=== PATIENT | female | born 1985 | race Caucasian/White ===

== ENCOUNTER 2016-12-12 18:08 | Emergency (ER) | payer BC, MEDICAID ==
[2016-12-12] MEDS ORDERED: ONDANSETRON HCL/PF 2 MG/ML VIAL IV ONE ×2 (18:52→20:48)
[2016-12-12] MEDS ORDERED: FAMOTIDINE 10 MG/ML VIAL IV ONE ×2 (18:53→19:06)
[2016-12-12] MEDS ORDERED: HYDROmorphone HCL 1 MG/ML DISP.SYRIN IV ONE (18:53)
[2016-12-12] MEDS ORDERED: NORMAL SALINE 2,000 ML IV ONE (18:53)
--- NOTE | 2016-12-12 19:00 | ERNOTE ---
<RavindraBob - Last Filed: 12/12/16 20:13> Abdominal HPI - Narrative Date of Service: 12/12/16 - General Chief Complaint: Abdominal Pain Time Seen by Provider: 12/12/16 18:50 Source: patient Exam Limitations: no limitations - Immun/Allergies/Home Medications Immunizatons: IMMUNIZATION HX Immunizations Up to Date Yes History of Influenza Vaccine Yes Hx Pneumococcal Vaccination No Allergies/Adverse Reactions: Allergies Sulfa (Sulfonamide Antibiotics) [Sulfa(Sulfonamide Antibiotics)] Allergy ( Verified 07/25/16 19:48) Hives hives Home Medications: HOME MEDICATIONS Albuterol Sulfate [Ventolin Hfa] 2 puff IH Q4H PRN 03/26/16 [Last Taken Unknown] ALPRAZolam [Xanax] 0.25 mg PO DAILY PRN #10 tab 07/25/16 [Last Taken Unknown] Dicyclomine HCl [Bentyl] 10 - 20 mg PO TID #20 tab 12/12/16 [Last Taken Unknown] - History of Present Illness Narrative: Patient comes due to upper abdominal pain. Timing: constant Quality: severe, sharpness Activities at Onset: none Modifying Factors - (Improves): Present: other - nothing Modifying Factors - (Worsens): Present: breathing, movement Associated Symptoms: Absent: headache, back pain, chest pain, neck pain, diaphoresis, diarrhea-gross blood, diarrhea-mucous, fatigue, heartburn, nausea, vomiting, loss of appetite, shortness of breath, swelling/mass in abdomen, syncope, weakness Prior Abdominal Problems: Present: none Prior Treatment: Present: recently seen Comment: Patient has Hx of Bowel Resection Review of Systems - Review of Systems Constitutional: Present: chills, malaise. Absent: fever EYE: Present: no symptoms reported ENT: Present: no symptoms reported Respiratory: Absent: shortness of breath, cough, orthopnea, wheezing Cardiology: Absent: chest pain, palpitations, syncope, edema Gastrointestinal/Abdominal: Present: nausea, abdominal pain. Absent: vomiting, diarrhea, constipation Genitourinary: Absent: frequency, pain, dysuria, hematuria Musculoskeletal: Present: no symptoms reported Skin: Present: no symptoms reported Neurological: Present: no symptoms reported Endocrine: Present: no symptoms reported Hematologic/Lymphatic: Present: no symptoms reported Psych: Present: no symptoms reported - Patient's Past Medical History Patient History - Medical: Anemia, ADHD, Anxiety, Migraines, Obesity Patient History - Cardiac/Respiratory: Asthma Patient History - Cancer: No Hx of Cancer Patient History - Surgical Procedures: Cholecystectomy, , Ear Tubes, Tubal Ligation, Other - Family History Mother Family History - Medical: , Rheumatoid Arthritis Family History - Cardiac/Respiratory: Hypertension Father Family History - Medical: Rheumatoid Arthritis Family History - Cardiac/Respiratory: Hypertension - Social History Living Situations: spouse Does anyone smoke in the home?: Yes Smoking Status: Current every day smoker Patient requests Smoking Cessation Consult: No Initiate information on Smoking Cessation: No Alcohol Use: occasionally Drug Use: none Physical Exam - Physical Exam General Appearance: Present: wd/wn, alert, no apparent distress Eye Exam: Normal inspection: bilateral, PERRL: bilateral, EOMI: bilateral Ears, Nose, Throat: Present: normal ENT inspection, hearing grossly normal, normal pharynx, dry mucous membranes Neck: Present: normal inspection, nontender. Absent: carotid bruit Respiratory: Present: no respiratory distress, normal breath sounds, no accessory muscle use, chest nontender, lungs clear Cardiovascular/Chest: Present: regular rate, rhythm, no murmur, normal peripheral pulses. Absent: JVD Gastrointestinal/Abdominal: Present: soft, tenderness - Upper Abdominal Area. Absent: distended, guarding, rebound, mass Back Exam: Present: normal inspection, normal range of motion, no CVA tenderness , no vertebral tenderness Extremity Exam: Present: normal inspection, non-tender, no edema, normal range of motion Neurological Exam: Present: alert, oriented, normal mood/affect, no motor/ sensory deficits Skin Exam: Present: normal color, warm/dry Lymphatic Exam: Present: no adenopathy ED Progress - Vital Signs Vital Signs: Vital Signs 12/12/16 18:26 Temperature 37.4 C Pulse Rate 98 Respiratory 18 Rate Blood Pressure 154/96 O2 Sat by Pulse 98 Oximetry - Progress/Reassessment Chief Complaint: Abdominal Pain - Transfer of Care Physician Sign Out: Bob Waite - Pending CT and Disposition Brief History: Patient with upper abdominal pain. Hx of resection who is pending CT result. Receiving Physician: Regis Roldan Departure - Departure Clinical Impression: Abdominal pain Qualifiers: Abdominal location: upper abdomen, unspecified Qualified Code(s): R10.10 - Upper abdominal pain, unspecified Disposition: Home Follow Up Needed Condition: Fair Instructions: Abdominal Pain, Adult, [id number] Additional Instructions: See your regular doctor for further evaluation of the lung and bladder findings on the CT. Gas-x may help with the pains. Prescriptions: Dicyclomine HCl [Bentyl] 10 - 20 mg PO TID #20 tab <Regis Roldan - Last Filed: 12/12/16 21:57> Abdominal HPI - Immun/Allergies/Home Medications Immunizatons: IMMUNIZATION HX Immunizations Up to Date Yes History of Influenza Vaccine Yes Hx Pneumococcal Vaccination No ED Progress - Results and Orders Patient's Lab Results:: I have reviewed the patient's lab results. Results and Orders: Laboratory Tests 12/12/16 12/12/16 12/12/16 19:10 19:10 19:50 WBC 6.8 Hgb 12.7 Hct 36.5 L Plt Count 306 Sodium 136 Potassium 4.4 Chloride 103 Carbon Dioxide 23.6 L BUN 9 Creatinine 0.63 Random Glucose 98 Calcium 8.9 Total Bilirubin 0.4 AST 31 ALT 67 Alkaline Phosphatase 96 Total Protein 8.0 Albumin 3.9 Amylase 58 Urine Color Yellow Urine Appearance Slightly cloudy Urine pH 6.0 Ur Specific [place] 1.015 Urine Protein Negative Urine Glucose (UA) Negative Urine Ketones Negative Urine Blood 250 H Urine Nitrate Negative Urine Bilirubin Negative Urine Urobilinogen Normal Ur Leukocyte Esterase Negative Urine RBC 0-5 Urine WBC 0-5 Ur Epithelial Cells 5-10 H Urine Bacteria Trace Urine Culture Comments No culture indicated - Vital Signs Patient's Vital Signs:: I have reviewed the patient's vital signs. Vital Signs: Vital Signs 12/12/16 12/12/16 18:26 19:27 Temperature 37.4 C Pulse Rate 98 94 Respiratory 18 18 Rate Blood Pressure 154/96 145/87 O2 Sat by Pulse 98 96 Oximetry - CT/Ultrasound CT/Ultrasound Narrative: Abd/ pelvis with contrast: irregular appearing densities within the left lung base. Wall thickening of the sigmoid colon wall thickening of the bladder - Progress/Reassessment Progress:: Improved Progress Note-Subjective: 12/12/16 20:49 initial pain medication did help pain but increased nausea. Pt having more pain again. orders written 12/12/16 21:[address] results and need to follow up with her PCP about bladder and lung findings. PO bentyl given for abd. cramping
[2016-12-12] MEDS ORDERED: ONDANSETRON HCL/PF 2 MG/ML VIAL ONE ×2 (19:06→20:47)
[2016-12-12] MEDS ORDERED: HYDROmorphone HCL 1 MG/ML DISP.SYRIN ONE (19:06)
[2016-12-12 19:17] LABS: Hematocrit 36.5 % (37.0-47.0); Hemoglobin 12.7 gm/dL (12.5-16.0); Mean Cell Volume 90.3 fl (78-100); Mean Corpuscular Hemoglobin 31.4 pg (27-31); Mean Corpuscular Hgb Conc 34.8 g/dl (32-36); Mean Platelet Volume 8.7 fl (6.0-9.5); Neutrophil # 4.7 K/mm3 (1.3-6.0); Neutrophil % 69.5 % (42-75.0); Platelet Count 306 K/mm3 (150-450); Red Blood Count 4.04 M/mm3 (4.2-5.4); Red Cell Distribution Width 11.8 % (11.5-14.0); White Blood Count 6.8 K/mm3 (4.0-10.5)
[2016-12-12 19:27] VITALS: BP 145/87
[2016-12-12 19:39] LABS: Albumin * 3.9 gm/dl (3.4-5.0); Anion Gap 13.8 mmol/L (6.8-13.8); BUN/Creatinine Ratio 14.3 (9.0-21.6); Bilirubin, Total 0.4 mg/dL (0.0-1.1); Ca. Corrected For Albumin 8.7 mg/dL (8.4-10.2); Calcium * 8.9 mg/dL (7.9-10.9); Carbon Dioxide 23.6 mmol/L (24-32.6); Potassium 4.4 mmol/L (3.4-4.6)
[2016-12-12 20:22] LABS: Urine Bilirubin Negative (NEGATIVE); Urine Blood 250 /ul (NEGATIVE); Urine Ketone Negative (NEGATIVE); Urine Nitrite Negative (NEGATIVE); Urine Protein Negative (NEGATIVE); Urine Specific Gravity 1.015 SP.GR. (1.005-1.010); Urine Urobilinogen Normal (NORMAL)
[2016-12-12 20:46] LABS: Urine Appearance Slightly Cloudy; Urine Bacteria TRACE; Urine Color Yellow; Urine RBC 0-5 /hpf (0-5); Urine WBC 0-5 /hpf (0-5)
[2016-12-12] MEDS ORDERED: MORPHINE SULFATE 2 MG/ML DISP.SYRIN ONE (20:47)
[2016-12-12] MEDS ORDERED: MORPHINE SULFATE 2 MG/ML DISP.SYRIN IV ONE (20:48)
[2016-12-12] MEDS ORDERED: MAG HYDROX/ALUMINUM HYD/SIMETH 30 ML UDC PO ONE (21:01)
[2016-12-12] MEDS ORDERED: LIDOCAINE HCL 20 ML UDC PO ONE (21:01)
[2016-12-12] MEDS ORDERED: SUCRALFATE 1 G/10 ML UDC PO ONE (21:01)
[2016-12-12] MEDS ORDERED: DICYCLOMINE HCL 20 MG TABLET PO ONE (21:50)
[2016-12-12] MEDS ORDERED: DICYCLOMINE HCL 20 MG TABLET ONE (21:56)
== END 2016-12-12 22:00 | disposition home or self-care (01) ==
LOC: ER 18:08
DX: R10.10 Upper abdominal pain, unspecified (principal); F17.200 Nicotine dependence, unspecified, uncomplicated; Z90.49 Acquired absence of other specified parts of digestive tract; Z96.29 Presence of other otological and audiological implants; Z87.898 Personal history of other specified conditions

== ENCOUNTER 2016-12-17 14:42 | Emergency (ER) | payer BC, MEDICAID ==
[2016-12-17 15:58] VITALS: BP 150/74
[2016-12-17] MEDS ORDERED: KETOROLAC TROMETHAMINE 30 MG/ML VIAL IM ONE (16:23)
--- NOTE | 2016-12-17 16:23 | ERNOTE ---
Medical Problem HPI - Narrative Date of Service: 12/17/16 - General Chief Complaint: General Assessment Time Seen by Provider: 12/17/16 16:09 Source: patient Exam Limitations: no limitations - Immun/Allergies/Home Medications Immunizations: IMMUNIZATION HX Immunizations Up to Date Yes History of Influenza Vaccine Yes Hx Pneumococcal Vaccination No Allergies/Adverse Reactions: Allergies Sulfa (Sulfonamide Antibiotics) [Sulfa(Sulfonamide Antibiotics)] Allergy ( Verified 12/17/16 15:57) Hives hives Home Medications: HOME MEDICATIONS Albuterol Sulfate [Ventolin Hfa] 2 puff IH Q4H PRN 03/26/16 [Last Taken Unknown] ALPRAZolam [Xanax] 0.25 mg PO DAILY PRN #10 tab 07/25/16 [Last Taken Unknown] Dicyclomine HCl [Bentyl] 10 - 20 mg PO TID #20 tab 12/12/16 [Last Taken Unknown] Azithromycin [Zithromax] 500 mg PO NOW #6 tab 12/17/16 [Last Taken Unknown] - History of Present History Narrative: Patient presents with one week of bilateral ear pain right >left, sore throat. Other sick contacts with the same. No fever. mile [place] around ears. No trouble breathing or swallowing. Has not seen anyone else for this. Nothign seems to make it better or worse. She is requesting an antibiotic. Occasional cough. Denies SOB. Timing: constant Severity: moderate Modifying Factors - (Improves): Present: other - none Modifying Factors - (Worsens): Present: other - none Review of Systems - Review of Systems Constitutional: Absent: fever EYE: Present: no symptoms reported ENT: Present: ear pain, nose congestion, sore throat. Absent: ear discharge Respiratory: Present: cough. Absent: shortness of breath Cardiology: Present: no symptoms reported Gastrointestinal/Abdominal: Absent: abdominal pain Genitourinary: Absent: dysuria Skin: Absent: rash Neurological: Absent: weakness - Patient's Past Medical History Patient History - Medical: Anemia, ADHD, Anxiety, Migraines, Obesity Patient History - Cardiac/Respiratory: Asthma Patient History - Cancer: No Hx of Cancer Patient History - Surgical Procedures: Cholecystectomy, , Ear Tubes, Tubal Ligation, Other - Family History Mother Family History - Medical: , Rheumatoid Arthritis Family History - Cardiac/Respiratory: Hypertension Father Family History - Medical: Rheumatoid Arthritis Family History - Cardiac/Respiratory: Hypertension - Social History Living Situations: spouse Does anyone smoke in the home?: Yes Smoking Status: Current every day smoker Have you smoked in the past 12 months: Yes Do you dip or chew tobacco: No Alcohol Use: occasionally Drug Use: none Physical Exam - Physical Exam General Appearance: Present: alert, no apparent distress. Absent: lethargic, irritable, crying Eye Exam: Normal inspection: bilateral, PERRL: bilateral Ears, Nose, Throat: Present: abnormal TM (R), abnormal TM (L), nasal congestion , other - Mild posterior oropharyngeal erythema. No abscess, no PRA, RPA or epiglottitis.. Absent: pharyngeal swelling, tonsillar exudate, tonsillar swelling, dry mucous membranes Neck: Present: other - Tender bilateral cervial lymphadenopathy. Respiratory: Present: no respiratory distress, normal breath sounds, no accessory muscle use, lungs clear Cardiovascular/Chest: Present: regular rate, rhythm Gastrointestinal/Abdominal: Present: normal bowel sounds, nontender, soft, no organomegaly Extremity Exam: Present: normal inspection Neurological Exam: Present: alert, normal mood/affect, licensed direct entry midwife II-XII nml as tested Skin Exam: Absent: skin rash ED Progress - Vital Signs Patient's Vital Signs:: I have reviewed the patient's vital signs. Vital Signs: Vital Signs 12/17/16 12/17/16 14:48 15:58 Temperature 36.2 C L Pulse Rate 115 H 76 Respiratory 14 12 Rate Blood Pressure 151/97 150/74 O2 Sat by Pulse 97 98 Oximetry - Progress/Reassessment Chief Complaint: General Assessment Progress Note-Subjective: 12/17/16 16:19 I offered the patient labs but she declines this. Understands risks and benefits. Clinically does have OM. She request ABx which I will give her. She is stable, non-toxic, no distress, nothing to suggest meningitis, abscess or other acute life threat. I discussed warning signs and reasons to return as well as the need for close f/u. Departure - Departure Clinical Impression: Otitis media Disposition: Home self-care Condition: Stable Instructions: Otitis Media, Adult, [id number] Additional Instructions: Rest. Fluids. Ibuprofen. Antibiotic as directed. Return if you change your mind about testing, develop trouble breathing or swallowing or if your condition worsens or changes in any way. Prescriptions: Azithromycin [Zithromax] 500 mg PO NOW #6 tab
[2016-12-17] MEDS ORDERED: KETOROLAC TROMETHAMINE 30 MG/ML VIAL ONE (16:28)
== END 2016-12-17 16:35 | disposition home or self-care (01) ==
LOC: ER 14:42
DX: H66.93 Otitis media, unspecified, bilateral (principal); F17.210 Nicotine dependence, cigarettes, uncomplicated; J45.909 Unspecified asthma, uncomplicated; F41.9 Anxiety disorder, unspecified

== ENCOUNTER 2017-02-10 14:39 | Emergency (ER) | payer BC, MEDICAID ==
[2017-02-10 15:04] VITALS: BP 133/92
--- NOTE | 2017-02-10 16:43 | ERNOTE ---
Abdominal HPI - Narrative Date of Service: 02/10/17 - General Chief Complaint: Abdominal Pain Time Seen by Provider: 02/10/17 16:40 Source: patient, RN notes reviewed Exam Limitations: no limitations - Immun/Allergies/Home Medications Immunizatons: IMMUNIZATION HX Immunizations Up to Date Yes History of Influenza Vaccine Yes Hx Pneumococcal Vaccination No Allergies/Adverse Reactions: Allergies Sulfa (Sulfonamide Antibiotics) [Sulfa(Sulfonamide Antibiotics)] Allergy ( Verified 12/17/16 15:57) Hives hives Home Medications: HOME MEDICATIONS Albuterol Sulfate [Ventolin Hfa] 2 puff IH Q4H PRN 03/26/16 [Last Taken Unknown] - History of Present Illness Narrative: 31 y/o female ambulatory to the ED for abdominal cramping that began yesterday. She has chronic diarrhea after a bowel resection in March of last year. She reports that this causes her to become dehydrated and having cramping. She states she has had about 10 stools today and that this is normal for her. She is also out of the pain medication she normally takes for this - [place]. Date (Duration): 02/09/17 Timing: getting worse Quality: cramping Activities at Onset: none Associated Symptoms: Present: denies symptoms Prior Abdominal Problems: Present: similar symptoms Prior Treatment: Present: recently seen Review of Systems - Review of Systems Constitutional: Absent: recent illness, fever, chills EYE: Present: no symptoms reported ENT: Present: no symptoms reported Respiratory: Absent: shortness of breath, cough Cardiology: Absent: chest pain, syncope Gastrointestinal/Abdominal: Present: diarrhea, abdominal pain. Absent: nausea, vomiting, eating less, drinking less Genitourinary: Absent: frequency, dysuria, hematuria Musculoskeletal: Present: no symptoms reported Skin: Absent: rash, lesions Neurological: Absent: headache, dizziness/light-headedness, weakness Endocrine: Present: no symptoms reported Hematologic/Lymphatic: Present: no symptoms reported Psych: Present: no symptoms reported - Patient's Past Medical History Patient History - Medical: Anemia, ADHD, Anxiety, Depression, Migraines, Obesity Patient History - Cardiac/Respiratory: Asthma Patient History - Cancer: No Hx of Cancer Patient History - Surgical Procedures: Cholecystectomy, Colon Resection, C- Section, Ear Tubes, Tubal Ligation, Other Patient History - Other: None LMP (females 10-50): 3 weeks - Family History Mother Family History - Medical: , Rheumatoid Arthritis Family History - Cardiac/Respiratory: Hypertension Father Family History - Medical: Rheumatoid Arthritis Family History - Cardiac/Respiratory: Hypertension - Social History Living Situations: spouse Abuse History: No History of abuse Psych History: Hx of Anxiety, Hx of Depression Does anyone smoke in the home?: Yes Smoking Status: Current every day smoker Have you smoked in the past 12 months: Yes Do you dip or chew tobacco: No Patient requests Smoking Cessation Consult: No Initiate information on Smoking Cessation: No Alcohol Use: occasionally Drug Use: none - Immunizations Immunizations Up to Date: Yes Hx Pneumococcal Vaccination: No History of Influenza Vaccine: Yes Physical Exam - Physical Exam General Appearance: Present: wd/wn, alert, obese, other - appears uncomfortable Neck: Present: normal inspection, nontender, supple Respiratory: Present: no respiratory distress, no accessory muscle use, wheezing Cardiovascular/Chest: Present: regular rate, rhythm, no murmur Gastrointestinal/Abdominal: Present: soft, tenderness - diffuse, abnormal bowel sounds - hypoactive, distended - obese Back Exam: Present: normal inspection, no CVA tenderness Extremity Exam: Present: normal inspection, normal range of motion, no edema Neurological Exam: Present: alert, oriented, no motor/sensory deficits, other - flat affect. Absent: normal mood/affect Skin Exam: Present: normal color, warm/dry ED Progress - Results and Orders Patient's Lab Results:: I have reviewed the patient's lab results. - Vital Signs Patient's Vital Signs:: I have reviewed the patient's vital signs. Vital Signs: Vital Signs 02/10/17 15:00 Temperature 36.4 C L Pulse Rate 95 Respiratory 16 Rate Blood Pressure 133/92 O2 Sat by Pulse 97 Oximetry - X-Ray X-Ray #1 X-Ray: abdomen Interpretation: Reviewed by me X-ray Comments: Technique: Supine and upright views the abdomen utilizing 4 total images Findings: Normal amount of stool seen throughout the colon. No dilation of the colon. No air-filled or dilated loops of small bowel to suggest obstruction. Cholecystectomy clips in the right upper quadrant. No free air or free fluid. Mild degenerative changes spine and hips. IMPRESSION: NO ACUTE INTRA-ABDOMINAL OR PELVIC PROCESS IDENTIFIED. Electronically signed by Blair Craig D.O.. - Progress/Reassessment Chief Complaint: Abdominal Pain Progress:: Unchanged Plan - Plan Plan: Discussed lab and xray results. No indication of any acute pathology at the present time. Discussed chronic symptoms, offered several suggestions for management - all of which the patient seems to have already tried and have not worked. Has an appt. in 2 days with a new PCP. Departure - Departure Clinical Impression: Abdominal pain Qualifiers: Abdominal location: generalized Qualified Code(s): R10.84 - Generalized abdominal pain Disposition: Home Follow Up Needed Condition: Stable Instructions: Abdominal Pain, Adult, [id number], Form - Excuse from Work, School, or Physical Activity
[2017-02-10] MEDS ORDERED: NORMAL SALINE 1,000 ML IV ONE (16:52)
[2017-02-10] MEDS ORDERED: KETOROLAC TROMETHAMINE 30 MG/ML VIAL IV ONE (16:52)
[2017-02-10] MEDS ORDERED: KETOROLAC TROMETHAMINE 30 MG/ML VIAL ONE (16:59)
[2017-02-10 17:01] LABS: Hematocrit 36.6 % (37.0-47.0); Hemoglobin 12.4 gm/dL (12.5-16.0); Mean Cell Volume 93.6 fl (78-100); Mean Corpuscular Hemoglobin 31.7 pg (27-31); Mean Corpuscular Hgb Conc 33.9 g/dl (32-36); Mean Platelet Volume 8.6 fl (6.0-9.5); Neutrophil # 4.3 K/mm3 (1.3-6.0); Neutrophil % 53.6 % (42-75.0); Platelet Count 291 K/mm3 (150-450); Red Blood Count 3.91 M/mm3 (4.2-5.4); Red Cell Distribution Width 12.5 % (11.5-14.0)
[2017-02-10 17:17] LABS: Albumin * 3.8 gm/dl (3.4-5.0); BUN/Creatinine Ratio 18.8 (9.0-21.6); Bilirubin, Total 0.3 mg/dL (0.0-1.1); Ca. Corrected For Albumin 8.5 mg/dL (8.4-10.2); Calcium * 8.7 mg/dL (7.9-10.9); Carbon Dioxide 25.1 mmol/L (24-32.6); Potassium 4.1 mmol/L (3.4-4.6); Total Protein 7.6 gm/dL (6.2-8.2)
== END 2017-02-10 18:34 | disposition home or self-care (01) ==
LOC: ER 14:39
DX: R10.84 Generalized abdominal pain (principal); Z72.0 Tobacco use

== ENCOUNTER 2017-05-06 14:07 | Emergency (ER) | payer BC, MEDICAID ==
--- NOTE | 2017-05-06 14:49 | ERNOTE ---
GI Bleeding/Rectal Pain ER Date of Service: 05/06/17 Presenting Symptoms: rectal bleeding Time Seen by Provider: 05/06/17 14:37 Source: patient, family, RN notes reviewed Exam Limitations: no limitations Immunizations: IMMUNIZATION HX Immunizations Up to Date Yes History of Influenza Vaccine Yes Hx Pneumococcal Vaccination No Allergies/Adverse Reactions: Allergies Sulfa (Sulfonamide Antibiotics) [Sulfa(Sulfonamide Antibiotics)] Allergy ( Verified 05/06/17 14:15) Hives hives Home Medications: HOME MEDICATIONS Albuterol Sulfate [Ventolin Hfa] 2 puff IH Q4H PRN 03/26/16 [Last Taken Unknown] ALPRAZolam [Xanax] 0.5 mg PO BID PRN 05/06/17 [Last Taken Unknown] - Pain Score Pain Score #1 Pain Score: 0 Narrative: Moni is a 31 year old female who presents to the ED for an episode of rectal bleeding that occurred shortly before arrival today. She has a history of a colon resection and has chronic diarrhea. She had passed a loose stool earlier today. She felt like she had to have a bowel movement this afternoon and reports passing only bright red blood. She had felt well prior to this. She has occasional abdominal cramping, but states this is not unusual for her. She also reports eating red jello shortly before this happened. Nausea/Vomiting: Present: none Abdominal Pain: Present: none Rectal Bleeding: Present: without stool Associated Symptoms: Reports: diarrhea. Denies: black stools, constipation/ hard stools, back pain, fainting, dizziness, light headedness, rectal pain Prior Treament: Denies: similar symptoms before Review of Systems - Review of Systems Constitutional: Absent: fever, chills, malaise EYE: Present: no symptoms reported ENT: Present: no symptoms reported Respiratory: Absent: shortness of breath, cough Cardiology: Absent: chest pain, palpitations, syncope Gastrointestinal/Abdominal: Present: diarrhea. Absent: nausea, vomiting, constipation, eating less, drinking less Genitourinary: Absent: frequency, dysuria, hematuria Musculoskeletal: Absent: back pain, muscle pain Skin: Absent: rash, lesions, lumps Neurological: Absent: headache, dizziness/light-headedness, weakness Endocrine: Present: no symptoms reported Hematologic/Lymphatic: Absent: easy bruising, easy bleeding Psych: Present: no symptoms reported - Patient's Past Medical History Patient History - Medical: Anemia, ADHD, Anxiety, Depression, Migraines, Obesity Patient History - Cardiac/Respiratory: Asthma Patient History - Cancer: No Hx of Cancer Patient History - Surgical Procedures: Cholecystectomy, Colon Resection, C- Section, Ear Tubes, Tubal Ligation, Other Patient History - Other: None LMP (Calendar): 04/09/17 - Family History Mother Family History - Medical: , Rheumatoid Arthritis Family History - Cardiac/Respiratory: Hypertension Father Family History - Medical: Rheumatoid Arthritis Family History - Cardiac/Respiratory: Hypertension - Social History Living Situations: home Abuse History: No History of abuse Psych History: Hx of Anxiety, Hx of Depression Does anyone smoke in the home?: Yes Smoking Status: Never smoker Alcohol Use: occasionally Drug Use: none - Immunizations Immunizations Up to Date: Yes Hx Pneumococcal Vaccination: No History of Influenza Vaccine: Yes Physical Exam - Physical Exam General Appearance: Present: wd/wn, alert, anxious, obese Neck: Present: normal inspection, nontender, supple Respiratory: Present: no respiratory distress, normal breath sounds, no accessory muscle use, lungs clear Cardiovascular/Chest: Present: regular rate, rhythm, no murmur, normal peripheral pulses Gastrointestinal/Abdominal: Present: normal bowel sounds, nontender, nondistended - obese, soft Rectal Exam: Present: normal rectal tone, heme negative stool - pink tinged mucus present on exam, tenderness. Absent: mass, hemorrhoids Back Exam: Present: normal inspection, no CVA tenderness Neurological Exam: Present: alert, oriented, normal mood/affect, no motor/ sensory deficits Skin Exam: Present: normal color, warm/dry ED Progress - Results and Orders Patient's Lab Results:: I have reviewed the patient's lab results. - Vital Signs Patient's Vital Signs:: I have reviewed the patient's vital signs. Vital Signs: Vital Signs 05/06/17 14:12 Temperature 36.5 C Pulse Rate 105 H Respiratory 12 Rate Blood Pressure 145/108 O2 Sat by Pulse 98 Oximetry - Progress/Reassessment Chief Complaint: GI Bleed Progress:: Unchanged Plan - Plan Plan: Negative hemocult despite pink tinged mucus present on exam, no active bleeding noted, suspect that the "blood" the patient passed [employer] was d/t the red jello she had just eaten. Departure Clinical Impression: Rectal bleeding - Departure Disposition: Home Follow Up Needed Condition: Stable Instructions: Form - Excuse from Work, School, or Physical Activity Additional Instructions: Return for pain, bleeding or other concerns Avoid eating anything red for now Referrals: Guillaume Stallings ARNP [Primary Care Provider] -
--- OUTSIDE RECORDS SUMMARY | 2017-05-06 14:58 | XMS REPORT | Continuity of Care Document ---
:1985 Author Organization [employer] [place] [address] Care Team Providers Name Role Phone Guillaume Stallings Jessica Primary Care Provider [phone] Source Comments This disclosure is being made pursuant to the [employer] program and maynot contain all information available regarding this patient.[facility] Active Allergies and Adverse Reactions Allergen Noted Date Severity Reactions Comments Sulfa Antibiotics 03/14/2017 High Hives Current Medications Be aware that medications may not be up to date as of this document. Alwaysverify current medications with the patient. Prescription Sig. Disp. Refills Start Date End Date Status ALPRAZolam (XANAX) 0.5 mg. Once 03/11/2017 Active 0.5 MG tablet Prior bed PROAIR HFA 108 (90 1-2 puffs. 03/14/2017 Active Base) MCG/ACT PRN inhaler ALPRAZolam (XANAX) Take 1 tablet 30 tablet 0 04/15/2017 Active 0.5 MG tablet (0.5 mg total) by mouth 3 (three) times daily as needed for Sleep or Anxiety. acetaminophen-codei Take 1 tablet 20 tablet 0 04/16/2017 Active ne (TYLENOL #3) by mouth 300-30 MG per every 6 (six) tablet hours as needed for Pain. HYDROcodone-acetami Take 1 tablet 10 tablet 0 04/17/2017 Active nophen (NORCO) by mouth 5-325 MG per tablet every 8 (eight) hours as needed for Pain. albuterol (PROAIR Inhale 2 1 Inhaler 0 03/14/2017 04/15/2017 Discontinued HFA;PROVENTIL puffs into HFA;VENTOLIN HFA) the lungs 108 (90 Base) every 4 MCG/ACT inhaler (four) hours as needed for Wheezing. ALPRAZolam (XANAX) Take 1 tablet 30 tablet 0 03/14/2017 04/15/2017 Discontinued 0.5 MG tablet (0.5 mg total) by mouth 3 (three) times daily as needed for Sleep or Anxiety. buPROPion Take 1 tab 63 tablet 2 03/21/2017 04/17/2017 Discontinued (WELLBUTRIN SR) 150 daily x 3 MG 12 hr tablet days then take 1 tab twice daily amoxicillin-clavula Take 1 tablet 20 tablet 0 04/16/2017 04/26/2017 lyla (AUGMENTIN) by mouth 2 875-125 MG per (two) times tablet daily. Hospital, Clinic, or Other Ordered Dose Route Frequency Start Date End Date Status Facility Administered Medication cefTRIAXone (ROCEPHIN) 1 g 1g IM Once 04/15/2017 04/15/2017 Ended in lidocaine 1 % IM syringe methylPREDNISolone sodium 125mg IM Once 04/15/2017 04/15/2017 Ended succinate (SOLU-MEDROL) injection methylPREDNISolone sodium 125mg IM Once 04/17/2017 04/17/2017 Ended succinate (SOLU-MEDROL) injection Active Problems Not on file Most Recent Encounters Date Type Specialty Providers Description 04/23/2017 Telephone Family Medicine Elliott Justin LPN Follow-up 04/17/2017 Office Visit Family Guillaume Lara, Swollen gland ( Primary SEAT PACK INSPECTOR Dx); Pain 04/16/2017 Telephone Family Medicine Elliott Justin LPN Follow-up 04/15/2017 Office Visit Family Guillaume Lara, Salivary gland SEAT PACK INSPECTOR inflammation (Primary Dx); Anxiety 03/21/2017 Orders Only Family Guillaume Lara, Smoking trying to quit SEAT PACK INSPECTOR (Primary Dx) 03/14/2017 Office Visit Family Guillaume Lara, Anxiety ( Primary Dx); SEAT PACK INSPECTOR Mild intermittent asthma without complication Social History Tobacco Use Types Packs/Day Years Used Date Current Every Day Smoker 0.25 Smokeless Tobacco: Never Used Tobacco Cessation:Ready to Quit: Yes Comments: Alcohol Use Drinks/Week oz/Week Comments Yes Last Filed Vital Signs Vital Sign Reading Time Taken Blood Pressure 130/82 04/17/2017 3:29 PM CDT Pulse 105 04/17/2017 3:29 PM CDT Temperature 36.4 C (97.5 F) 04/17/2017 3:29 PM CDT Respiratory Rate 14 04/17/2017 3:29 PM CDT Height 1.702 m (5' 7") 04/17/2017 3:29 PM CDT Weight 106.142 kg (234 lb) 04/17/2017 3:29 PM CDT Body Mass Index 36.64 04/17/2017 3:29 PM CDT Oxygen Saturation 98% 04/17/2017 3:29 PM CDT Plan of Care Health Maintenance Due Date Last Done Comments Pneumococcal Medium Risk 19-64 yo (1 of 1 - PPSV23) 2005 Tetanus/Pertussis (1 - Tdap) 2005 Pap Smear 2007 Influenza Immunization (#1) 2016 Results from Last 3 Months Not on file
[2017-05-06 15:00] LABS: Hematocrit 33.4 % (37.0-47.0); Hemoglobin 11.5 gm/dL (12.5-16.0); Mean Cell Volume 92.8 fl (78-100); Mean Corpuscular Hemoglobin 31.9 pg (27-31); Mean Corpuscular Hgb Conc 34.4 g/dl (32-36); Mean Platelet Volume 8.6 fl (6.0-9.5); Neutrophil # 2.9 K/mm3 (1.3-6.0); Neutrophil % 47.1 % (42-75.0); Platelet Count 256 K/mm3 (150-450); Red Cell Distribution Width 12.6 % (11.5-14.0); White Blood Count 6.2 K/mm3 (4.0-10.5)
[2017-05-06 15:10] LABS: Prothrombin Time (Patient) 9.5 Seconds (9.4-11.4)
[2017-05-06 15:12] LABS: Albumin * 3.5 gm/dl (3.4-5.0); Anion Gap 14.7 mmol/L (6.8-13.8); BUN/Creatinine Ratio 13.5 (9.0-21.6); Bilirubin, Total 0.3 mg/dL (0.0-1.1); Ca. Corrected For Albumin 8.6 mg/dL (8.4-10.2); Calcium * 8.5 mg/dL (7.9-10.9); Carbon Dioxide 25.4 mmol/L (24-32.6); INR 0.91 INR (0.90-1.10); Partial Thrombolplastin Time 22.9 Seconds (24-32); Potassium 4.1 mmol/L (3.4-4.6); Total Protein 7.2 gm/dL (6.2-8.2)
[2017-05-06 16:03] VITALS: BP 128/70
== END 2017-05-06 16:04 | disposition home or self-care (01) ==
LOC: ER 14:07
DX: K62.5 Hemorrhage of anus and rectum (principal); F41.8 Other specified anxiety disorders; J45.909 Unspecified asthma, uncomplicated

== ENCOUNTER 2017-06-08 16:12 | Emergency (ER) | payer BC, MEDICAID ==
--- OUTSIDE RECORDS SUMMARY | 2017-06-08 17:23 | XMS REPORT | Continuity of Care Document ---
:1985 Author Organization [employer] [place] [address] Care Team Providers Name Role Phone Jose Stallingsey Jessica Primary Care Provider [phone] Source Comments This disclosure is being made pursuant to the [employer] program and maynot contain all information available regarding this patient.[employer] Active Allergies and Adverse Reactions Allergen Noted Date Severity Reactions Comments Sulfa Antibiotics 03/14/2017 High Hives Current Medications Be aware that medications may not be up to date as of this document. Alwaysverify current medications with the patient. Prescription Sig. Disp. Refills Start Date End Date Status PROAIR HFA 108 (90 1-2 puffs. 03/14/2017 Active Base) MCG/ACT PRN inhaler acetaminophen-codei Take 1 tablet 20 tablet 0 04/16/2017 Active ne (TYLENOL #3) by mouth 300-30 MG per every 6 (six) tablet hours as needed for Pain. HYDROcodone-acetami Take 1 tablet 10 tablet 0 04/17/2017 Active nophen (NORCO) by mouth 5-325 MG per tablet every 8 (eight) hours as needed for Pain. ALPRAZolam (XANAX) Take 1 tablet 60 tablet 0 05/12/2017 Active 0.5 MG tablet (0.5 mg total) by mouth 3 (three) times daily as needed for Sleep or Anxiety. dicyclomine Take 1 tablet 30 tablet 0 05/16/2017 Active (BENTYL) 20 MG by mouth 3 tablet (three) times daily as needed. busPIRone (BUSPAR) Take 1 tablet 60 tablet 0 05/16/2017 Active 5 MG tablet by mouth 2 (two) times daily. ALPRAZolam (XANAX) 0.5 mg. Once 03/11/2017 05/16/2017 Discontinued 0.5 MG tablet Prior bed ALPRAZolam (XANAX) Take 1 tablet 30 tablet 0 04/15/2017 05/12/2017 Discontinued 0.5 MG tablet (0.5 mg total) by mouth 3 (three) times daily as needed for Sleep or Anxiety. Active Problems Not on file Most Recent Encounters Date Type Specialty Providers Description 05/16/2017 Office Visit [facility] Guillaume Stallings, Abdominal cramping PRODUCT DEVELOPMENT WORKER (Primary Dx); Anxiety; Fatigue, unspecified type 05/12/2017 Orders Only [facility] Elliott Justin LPN Anxiety ( Primary Dx) 04/23/2017 Telephone [facility] Elliott Justin LPN Follow-up 04/17/2017 Office Visit [facility] Guillaume Stallings, Swollen gland ( Primary PRODUCT DEVELOPMENT WORKER Dx); Pain 04/16/2017 Telephone [facility] Elliott Justin LPN Follow-up 04/15/2017 Office Visit [facility] Guillaume Stallings, Salivary gland PRODUCT DEVELOPMENT WORKER inflammation (Primary Dx); Anxiety 03/21/2017 Orders Only [facility] Guillaume Lara, Smoking trying to quit PRODUCT DEVELOPMENT WORKER (Primary Dx) 03/14/2017 Office Visit [facility] Guillaume Stallings, Anxiety ( Primary Dx); PRODUCT DEVELOPMENT WORKER Mild intermittent asthma without complication Social History [...] 04/17/2017 3:29 PM CDT Plan of Care Date Type Specialty Providers Description 06/17/2017 Appointment Family Medicine Health Maintenance Due Date Last Done Comments Pneumococcal Medium Risk 19-64 yo (1 of 1 - PPSV23) 2005 Tetanus/Pertussis (1 - Tdap) 2005 Pap Smear 2007 Influenza Immunization (#1) 2016 Results from Last 3 Months TSH (05/16/2017 10:43 AM) Component Value Range TSH 3.425 0.350-4.940 uIU/mL Narrative Testing performed at [facility], [address] [place] [address].Substation Operator Helper Hari Luo MD Comprehensive metabolic panel (05/16/2017 10:43 AM) Component Value Range Glucose 94Comment: 60-100 mg/dL Fasting Plasma Glucose (FPG)<100 MG/DL Impaired Fasting Glucose (IFG) 100-125 MG/DL Provisional Diagnosis of Diabetes Mellitus > be=673 MG/DL (Diagnosis Must Be Confirmed) BUN, Blood 13 7-19 mg/dL Creatinine 0.7 0.6-1.2 mg/dL Glomerular Filtration Rate 118 >90 mL/min/1.73mm2 Estimate Glomerlular Filtration Rate 137Comment:The estimated GFR >90 mL/min/1.73mm2 Estimate- has not been validated for women or patients with serious comorbid conditions, or with extremes of body size, muscle mass, or nutritional status. Calcium 8.7 8.4-10.2 mg/dL Sodium 135(L) 136-145 mmol/L Potassium 4.3 3.5-4.6 mmol/L Chloride 105 99-111 mmol/L CO2 22.6 21.0-32.0 mmol/L Albumin 3.6 3.5-5.0 g/dL Total Protein 7.2 6.1-8.0 g/dL Bilirubin Total 0.4 0.2-1.2 mg/dL Alkaline Phosphatase 70 40-150 U/L AST 48(H) 5-34 U/L ALT 57(H) 0-55 u/L Narrative Testing performed at [facility], [address] [place] [address].Substation Operator Helper Hari Luo MD CBC auto differential (05/16/2017 10:43 AM) Component Value Range WBC 7.1 3.1-11.0 x10^3/uL RBC 3.72(L) 4.00-5.10 x10^6/uL Hemoglobin 12.2(L) 12.5-15.3 g/dL Hematocrit 35.4 33.7-46.0 % MCV 95.2 82.0-98.0 fL MCH 32.8 27.2-33.3 pg MCHC 34.5 32.0-36.0 g/dL RDW 12.3 11.5-14.7 % SD-RDW 42.5 36.5-50.0 fL Platelets 284 150-450 x10^3/uL MPV 9.5 9.1-12.1 fL NE% 48.3 42.0-76.0 % %LYMPH 40.0 13.5-48.0 % %MONO 5.8 3.5-14.0 % % Eosinophils 4.9 0.0-7.0 % % Basophils 0.7 0.0-1.5 % Imm Gran Relative 0.3 0.0-1.0 % NE# 3.4 1.2-7.3 x10^3/uL Lymphs # 2.8 0.7-3.5 x10^3/uL Placer# 0.4 0.2-0.9 x10^3/uL Eosinophil # 0.4 0.0-0.5 x10^3/uL Baso# 0.1 0.0-0.1 x10^3/uL Imm Gran Absolute 0.02 0.00-0.10 x10^3/uL NRBC % 0.00 0.00-0.10 /100 WBC Specimen BLOOD Narrative Testing performed at [facility], [address] [place] [address].Substation Operator Helper Hari Luo MD Insurance Payer Benefit Plan / Subscriber ID Type Phone Address Group [facility] [id number] O [phone] [facility] [id number] [place] [address] [facility] [id number] [facility] [phone] [address] [place] [address] [place] [phone] [place] [id number]
[2017-06-08] MEDS ORDERED: ALPRAZolam 0.25 MG TABLET PO ONE (17:29)
[2017-06-08] MEDS ORDERED: ALPRAZolam 0.25 MG TABLET ONE (17:37)
--- NOTE | 2017-06-08 17:37 | ERNOTE ---
Psychological HPI - General Chief Complaint: Anxiety Source: Reports: patient Exam Limitations: Reports: no limitations - Immun/Allergies/Home Medications Allergies/Adverse Reactions: Allergies Sulfa (Sulfonamide Antibiotics) [Sulfa(Sulfonamide Antibiotics)] Allergy ( Verified 06/08/17 16:31) Hives hives Home Medications: HOME MEDICATIONS Albuterol Sulfate [Ventolin Hfa] 2 puff IH Q4H PRN 03/26/16 [Last Taken Unknown] ALPRAZolam [Xanax] 0.5 mg PO BID PRN #10 tablet 06/08/17 [Last Taken Unknown] - History of Present Illness Narrative: Patient ran out of her anxiety medications two days ago and has been feeling rather anxious. 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 she denies any other current stressors. She has tried a few daily anxiety medications most recently buspar and has not tolerated it, stopped buspar after two weeks about a week ago, has an appointment to see her PCP next week Time Seen by Provider: 06/08/17 17:19 Arrived by: Reports: private car Review of Systems - Review of Systems Constitutional: Absent: recent illness, fever ENT: Absent: nose congestion, sore throat Respiratory: Present: shortness of breath Cardiology: Present: chest pain Gastrointestinal/Abdominal: Absent: nausea, vomiting, abdominal pain Genitourinary: Present: no symptoms reported Musculoskeletal: Absent: back pain Skin: Absent: rash Neurological: Absent: headache - Patient's Past Medical History Patient History - Medical: Anemia, ADHD, Anxiety, Depression, Migraines, Obesity Patient History - Cardiac/Respiratory: Asthma Patient History - Cancer: No Hx of Cancer Patient History - Surgical Procedures: Cholecystectomy, Colon Resection, C- Section, Ear Tubes, Tubal Ligation, T & A Patient History - Other: None LMP (Calendar): 04/09/17 - Family History Mother Family History - Medical: , Rheumatoid Arthritis Family History - Cardiac/Respiratory: Hypertension Father Family History - Medical: Rheumatoid Arthritis Family History - Cardiac/Respiratory: Hypertension - Social History Living Situations: home Abuse History: No History of abuse Psych History: Hx of Anxiety, Hx of Depression Does anyone smoke in the home?: Yes Smoking Status: Current every day smoker Alcohol Use: occasionally Drug Use: none - Immunizations Immunizations Up to Date: Yes Hx Pneumococcal Vaccination: No History of Influenza Vaccine: No Physical Exam - Physical Exam General Appearance: Present: wd/wn, alert, no apparent distress, anxious Respiratory: Present: no respiratory distress, normal breath sounds, no accessory muscle use, chest nontender, lungs clear Cardiovascular/Chest: Present: regular rate, rhythm, no murmur Neurological Exam: Present: alert, oriented, normal mood/affect Skin Exam: Present: normal color, warm/dry ED Progress - Vital Signs Patient's Vital Signs:: I have reviewed the patient's vital signs. Vital Signs: Vital Signs 06/08/17 16:27 Temperature 37.0 C Pulse Rate 98 Respiratory 17 Rate Blood Pressure 142/101 O2 Sat by Pulse 99 Oximetry - Progress/Reassessment Chief Complaint: Anxiety Progress Note-Subjective: 06/08/17 17:30 discussed possible counselling, given list of counselling services Departure Clinical Impression: Anxiety - Departure Disposition: Home self-care Condition: Good Instructions: Panic Attacks, [id number] Additional Instructions: call your doctor for follow up, consider counselling Referrals: Guillaume Stallings ARNP [Primary Care Provider] - Prescriptions: ALPRAZolam [Xanax] 0.5 mg PO BID PRN #10 tablet PRN Reason: Anxiety
[2017-06-08 20:51] VITALS: BP 141/95
== END 2017-06-08 17:42 | disposition home or self-care (01) ==
LOC: ER 16:12
DX: F41.1 Generalized anxiety disorder (principal); Z72.0 Tobacco use

== ENCOUNTER 2020-07-17 14:32 | Observation (INO) ==
[2020-07-17] MEDS ORDERED: ONDANSETRON HCL/PF 2 MG/ML VIAL IV ONE (15:34)
[2020-07-17 15:55] LABS: Hematocrit 40.9 % (37.0-47.0); Hemoglobin 13.5 gm/dL (12.5-16.0); Mean Cell Volume 100.2 fl (78-100); Mean Corpuscular Hemoglobin 33.1 pg (27-31); Mean Platelet Volume 8.5 fl (8-12.5); Neutrophil # 6.7 K/mm3 (1.3-6.0); Neutrophil % 71.7 % (42-75.0); Platelet Count 214 K/mm3 (150-450); Red Blood Count 4.08 M/mm3 (4.2-5.4); Red Cell Distribution Width 13.3 % (11.5-14.0); White Blood Count 9.4 K/mm3 (4.0-10.5)
[2020-07-17 16:05] LABS: Prothrombin Time (Patient) 11.9 Seconds (9.1-10.7)
[2020-07-17 16:06] LABS: INR 1.21 INR (0.92-1.08); Partial Thrombolplastin Time 21.4 Seconds (24-32)
[2020-07-17 16:07] LABS: Albumin * 3.2 gm/dl (3.4-5.0); Anion Gap 17.5 mmol/L (6.8-13.8); BUN/Creatinine Ratio 8.7 (9.0-21.6); Bilirubin, Total 1.4 mg/dL (0.0-1.1); Ca. Corrected For Albumin 9.6 mg/dL (8.4-10.2); Calcium * 9.3 mg/dL (7.9-10.9); Carbon Dioxide 25.9 mmol/L (24-32.6); Potassium 3.4 mmol/L (3.4-4.6); Total Protein 8.1 gm/dL (6.2-8.2)
[2020-07-17] MEDS ORDERED: NORMAL SALINE 1,000 ML IV PRN (16:16)
[2020-07-17] MEDS ORDERED: DIATRIZOATE MEGLUMINE, SODIUM 30 ML BTL PO ONE (16:31)
--- NOTE | 2020-07-17 16:33 | ERNOTE ---
Medical Problem HPI - Narrative Date of Service: 07/17/20 - General Chief Complaint: General Assessment Time Seen by Provider: 07/17/20 15:23 Source: patient Exam Limitations: no limitations - Immun/Allergies/Home Medications Immunizations: IMMUNIZATION HX Immunizations Up to Date Yes History of Influenza Vaccine No Hx Pneumococcal Vaccination No Allergies/Adverse Reactions: Allergies Sulfa (Sulfonamide Antibiotics) [Sulfa(Sulfonamide Antibiotics)] Allergy (Verified 07/17/20 14:50) Hives hives Home Medications: HOME MEDICATIONS Albuterol Sulfate [Proair Respiclick] 90 mcg INHALATION Q4H PRN #1 [email or web address] 08/12/19 [Last Taken Unknown] Multivitamin [One Daily] 1 tab PO DAILY 08/12/19 [Last Taken Unknown] [place] Oil/Edroy-3 Fatty Acids [Fish Oil] 1 tab PO DAILY 07/17/20 [Last Taken Unknown] - Pain Score Pain Score #1 Pain Score: 8 - History of Present History Narrative: The patient is a 34 year old female who presents for lethargy, weakness and vomiting which has been present for 1 month with profound worsening symptoms for 3 days. There are associated symptoms of abdominal pain. The patient reports pain to abdomen, 7/10. There are no alleviating factors. There are aggravating factors of oral intake and activity. Previous treatments have included: none. The past medical history includes: asthma. The social history is positive for current tobacco use and occasional alcohol use. The patient has had no known ill contacts. Patient states that she has had intermittent vomiting and persistent nausea for the past month. Patient states she has also had an approximate 40 pound weight loss over the past 3-6 months without attempt. Patient states she occasional drinks alcohol with last consumption being last weekend. 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 Patient reports decreased oral intake and output. Review of Systems - Review of Systems Constitutional: Present: recent illness, chills, weakness, fatigue. Absent: fever EYE: Present: no symptoms reported ENT: Present: no symptoms reported. Absent: ear pain, nasal drainage, sore throat Respiratory: Present: no symptoms reported. Absent: shortness of breath, cough, wheezing Cardiology: Present: no symptoms reported. Absent: chest pain Gastrointestinal/Abdominal: Present: nausea, vomiting, abdominal pain, eating l ess, drinking less. Absent: diarrhea Genitourinary: Present: decreased urinary output. Absent: dysuria Musculoskeletal: Present: no symptoms reported Skin: Present: no symptoms reported. Absent: rash Neurological: Present: dizziness/light-headedness, weakness All Other Systems: All systems neg except as marked Medical History (Last Reviewed 07/17/20 @ 16:37 by CECILIA Camejo) Asthma Surgical History: Surgical History (Last Reviewed 07/17/20 @ 16:37 by CECILIA Camejo) History of cholecystectomy History of small bowel obstruction History of tonsillectomy History of tubal ligation Family History: Family History (Last Reviewed 07/17/20 @ 16:37 by CECILIA Camejo) Other No pertinent family history Social History: (Last Reviewed 07/17/20 @ 16:37 by CECILIA Camejo) Tobacco: Smoking Status: Current every day smoker Smoking cigarettes per day: 6 Alcohol: alcohol intake frequency: a few times a month Substance Use: substance use type: does not use Physical Exam - Physical Exam General Appearance: Present: wd/wn, moderate distress, lethargic - awakens easily, irritable, crying Head Exam: Present: normal inspection, no evidence of injury Eye Exam: Normal inspection: bilateral, PERRL: bilateral, EOMI: bilateral Ears, Nose, Throat: Present: dry mucous membranes Neck: Present: normal inspection Respiratory: Present: no respiratory distress, no accessory muscle use, wheezing - diffuse expiratory wheeze, clears with cough Cardiovascular/Chest: Present: no murmur, tachycardia Gastrointestinal/Abdominal: Present: soft, tenderness - diffuse, moderate to severe RUQ, abnormal bowel sounds - hypoactive, distended, guarding, hepatomegaly - large hepatomegaly palpable at midline and to umbilicus Extremity Exam: Present: extremity edema - 1+ bilateral Neurological Exam: Present: alert, oriented, normal mood/affect, motor weakness - weakness with equal front line supervisor to bilateral upper extremities, weakness noted to bilateral lower extremities but equal, patient needing two assist with ambula tion, other - denies sensory loss Skin Exam: Present: normal color, warm/dry Progress - Date and Time Seen: Date and Time: 07/17/20 16:[address] evaluation due to gradual elevation to liver enzymes as well as RUQ abdominal pain, weight loss and vomiting x1 month. Will administer IV hydration to aid with recent decreased fluid intake. 07/17/20 18:06 Patient positive for urine nitrate, will administer IV Rocephin for UTI. Patient drinking contrast for CT evaluation of abdominal pain, persistent vomiting and hepatomegaly. Will reassess to evaluate improvement following antibiotic administration. 07/17/20 19:47 Case discuss with due to patients persistent weakness, unsteady gait with need for assistance and abdominal pain with UTI and hepatomegaly. Attempt to obtain head CT to ensure no abnormality due to gait instability and extremity weakness, unable to obtain due to recent IV contrast administration. Patient upper front line supervisor are equal and weak. Patient lower extremities bilateral weakness. 07/17/20 20:23 Case reviewed with ER providers and for other insight, will add CK to ensure not associated with muscle abnormality. Again case discussed with and discussed need for vitamin deficiencies such as folate and B12. Agrees with observation admission, case reviewed with linen room houseperson Xiomara Bill RN. 07/17/20 21:38 COVID testing negative and results sent via [facility] [employer] to . - Results and Orders Patient's Lab Results:: I have reviewed the patient's lab results. - Vital Signs Patient's Vital Signs:: I have reviewed the patient's vital signs. Vital Signs: Vital Signs 07/17/20 14:46 Temperature 36.3 C Pulse Rate 125 H Respiratory Rate 16 Blood Pressure 137/97 H O2 Sat by Pulse Oximetry 96 - X-Ray X-Ray #1 X-Ray: abdomen Interpretation: Reviewed by me X-ray Comments: IMPRESSION: No evidence for obstruction, generalized ileus nor free air. Prominent right lobe of the liver suggested and confirmed on previous CT. Electronically signed by Anya Vegas MD. - CT/Ultrasound CT/Ultrasound Narrative: IMPRESSION: Slight haziness of the peripancreatic fat might imply early pancreatitis. This should be correlated clinically and with amylase values. Mild wall thickening in the rectosigmoid with slight haziness of adjacent fat could imply a mild colitis. It is a very nonspecific finding but no evidence for perforation, phlegmon or abscess. Progressive marked splenomegaly. The right lobe now projects into the pelvis in the right iliac fossa, previously terminating above the iliac crest. No focal liver abnormality associated with this. Other findings described above presumed to be incidental in this setting Electronically signed by Anya Vegas MD. - Progress/Reassessment Chief Complaint: General Assessment Progress:: Re-examined Progress Note-Subjective: 07/17/20 21:39 Patient remains to have weakness without recurrence of vomiting during ER course. Patient more awake and remains oriented. Repeat lab testing was added for the am. Departure Clinical Impression: Generalized weakness, Unsteady gait when walking, Hepatomegaly UTI (urinary tract infection) Qualifiers: Urinary tract infection type: site unspecified Hematuria presence: without hematuria Qualified Code(s): N39.0 - Urinary tract infection, site not specified - Departure Disposition: Still a patient Condition: Fair
[2020-07-17 17:22] LABS: Urine Bilirubin 6 mg/dl (NEGATIVE); Urine Blood Negative /ul (NEGATIVE); Urine Ketone 5 mg/dL (NEGATIVE); Urine Protein 30 mg/dL (NEGATIVE); Urine Specific Gravity 1.025 SP.GR. (1.005-1.010); Urine Urobilinogen 4 EU/dl (NORMAL); Urine pH 6.5 pH (5.0-7.0)
[2020-07-17] MEDS ORDERED: MORPHINE SULFATE 2 MG/ML DISP.SYRIN IV ONE ×2 (17:25→18:06)
[2020-07-17 17:38] LABS: Urine Appearance Slightly Cloudy (CLEAR); Urine Color Amber; Urine Nitrite Positive (NEGATIVE)
[2020-07-17 17:39] LABS: Urine Bacteria 4+; Urine Hyaline Cast TRACE /LPF; Urine Mucus Many - 3+; Urine RBC TRACE /hpf (0-5)
[2020-07-17] MEDS ORDERED: cefTRIAXone SODIUM 1,000 MG/100 ML BAG IV ONE (18:05)
[2020-07-17] MEDS ORDERED: LORazepam 2 MG/ML DISP.SYRIN IV ONE (18:21)
[2020-07-17] MEDS ORDERED: ONDANSETRON HCL/PF 2 MG/ML VIAL IV PRN (21:01)
[2020-07-17] MEDS: NORMAL SALINE 1,000 ML IV PRN (22:02)
[2020-07-17] MEDS: MORPHINE SULFATE 2 MG/ML DISP.SYRIN IV PRN (22:07)
[2020-07-18] MEDS: MORPHINE SULFATE 2 MG/ML DISP.SYRIN IV PRN ×8 (00:45→20:10)
[2020-07-18] MEDS: NORMAL SALINE 1,000 ML IV PRN ×2 (05:45→14:39)
[2020-07-18 06:35] LABS: Hemoglobin 11.8 gm/dL (12.5-16.0); Mean Cell Volume 101.9 fl (78-100); Mean Corpuscular Hemoglobin 32.5 pg (27-31); Mean Corpuscular Hgb Conc 31.9 g/dl (32-36); Mean Platelet Volume 8.7 fl (8-12.5); Neutrophil % 54.9 % (42-75.0); Platelet Count 156 K/mm3 (150-450); Red Blood Count 3.63 M/mm3 (4.2-5.4); Red Cell Distribution Width 13.3 % (11.5-14.0); White Blood Count 5.4 K/mm3 (4.0-10.5)
[2020-07-18 07:01] LABS: Albumin * 2.7 gm/dl (3.4-5.0); Anion Gap 14.1 mmol/L (6.8-13.8); BUN/Creatinine Ratio 9.4 (9.0-21.6); Bilirubin, Total 1.6 mg/dL (0.0-1.1); Ca. Corrected For Albumin 9.1 mg/dL (8.4-10.2); Calcium * 8.4 mg/dL (7.9-10.9); Potassium 3.1 mmol/L (3.4-4.6); Total Protein 6.9 gm/dL (6.2-8.2)
[2020-07-18] MEDS: POTASSIUM CHLORIDE 20 MEQ TABLET.SA PO ONE ×2 (10:24→10:34)
[2020-07-18] MEDS ORDERED: POTASSIUM CHLORIDE IV SCH (10:30)
[2020-07-18] MEDS ORDERED: NORMAL SALINE IV SCH (10:30)
[2020-07-18] MEDS: POTASSIUM CHLORIDE IN WATER 100 ML IV SCH ×4 (10:54→14:38)
[2020-07-18] MEDS: oxyCODONE HCL/ACETAMINOPHEN 1 TAB TABLET PO PRN ×2 (11:31→17:34)
--- NOTE | 2020-07-18 13:42 | HP ---
Chief Complaint - Chief Complaint Date of Service: 07/18/20 Time of Service: 09:06 Chief Complaint: Generalized weakness x1 month History of Present Illness: 34-year-old female with a past medical history of asthma presents with compl aints of generalized weakness, nausea and vomiting that has been progressively worsening for the past 1 month. She has had an unintentional weight loss of 65 pounds in the past 7 months. She is a xhmu-jr-yhdw mom and states that everybody at home is well. In the emergency department she was found to have stable vitals, mild elevation of her AST of 205, ALT 88, total bilirubin of 1.4, COVID and mono screen were both negative. CT abdomen pelvis showed hepatosplenomegaly. UA was positive for leukocyte esterase and nitrates but she is asymptomatic, she received a dose of ceftriaxone in the emergency department and it was not continued.. She was admitted for weakness. On exam she is found to have decreased sensation in bilateral upper and lower extremities, 4 out of 5 strength throughout all extremities, areflexia throughout all extremities, she is requiring assistance two-person assistance for ambulation. At baseline she ambulates independently. Medical History (Last Reviewed 07/17/20 @ 16:37 by CECILIA Camejo) Asthma Surgical History: Surgical History (Last Reviewed 07/17/20 @ 16:37 by CECILIA Camejo) History of cholecystectomy History of small bowel obstruction History of tonsillectomy History of tubal ligation Family History: Family History (Last Reviewed 07/17/20 @ 16:37 by CECILIA Camejo) Other No pertinent family history Social History: (Last Reviewed 07/17/20 @ 16:37 by CECILIA Camejo) Tobacco: Smoking Status: Current every day smoker Smoking cigarettes per day: 6 Alcohol: alcohol intake frequency: a few times a month Substance Use: substance use type: does not use Review Of Systems (GEN) - Review of Systems Generalized/Overall Review: Absent: Chills, Fever Respiratory: Absent: Shortness of Breath Cardiac: Absent: Chest Pain Abdominal: Absent: Abdominal Pain Musculoskeletal: Present: Back Pain Neurological: Present: Numbness - Bilateral lower extremities, Weakness Misc: All systems neg except as marked Immunizations: IMMUNIZATION HX Immunizations Up to Date Yes History of Influenza Vaccine No Hx Pneumococcal Vaccination No Allergies/Adverse Reactions: Allergies Allergy/AdvReac Type Severity Reaction Status Date / Time Sulfa (Sulfonamide Allergy Hives Verified 07/17/20 14:50 Antibiotics) [Sulfa(Sulfonamide Antibiotics)] Home Medications: HOME MEDICATIONS Albuterol Sulfate [Proair Respiclick] 90 mcg INHALATION Q4H PRN #1 aer.[email or web address] 08/12/19 [Last Taken Unknown] Multivitamin [One Daily] 1 tab PO DAILY 08/12/19 [Last Taken Unknown] Jupiter Oil/Erick-3 Fatty Acids [Fish Oil] 1 tab PO DAILY 07/17/20 [Last Taken Unknown] Exam - Exam Vital Signs: Vital Signs - Last Taken Temp 36.2 C 07/18/20 10:00 Pulse 101 H 07/18/20 10:00 Resp 16 07/18/20 10:00 BP 130/87 07/18/20 10:00 Pulse Ox 95 07/18/20 10:00 Constitutional: Present: Alert, Well developed, Well nourished, No distress, Young, Obese ENT Exam: Present: hearing grossly normal, dry mucous membranes Eye Exam: bilateral eye: normal inspection, EOMI Neck: Absent: lymphadenopathy (R), lymphadenopathy (L) Back Exam: Present: no CVA tenderness, no vertebral tenderness Respiratory: Present: lungs clear, no respiratory distress, No wheezing. 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 4 out of 5 strength throughout upper and lower extremities Appearance: Present: appropriate appearance Eye contact: Present: cooperative Thoughts: Present: normal thought pattern, normal mood /affect Diagnostic Studies: Abnormal Lab Results 07/17/20 07/17/20 07/17/20 Range/Units 15:49 15:49 15:49 RBC 4.08 L (4.2-5.4) M/mm3 Hgb (12.5-16.0) gm/dL MCV 100.2 H (78-100) fl MCH 33.1 H (27-31) pg MCHC (32-36) g/dl Neutrophils # 6.7 H (1.3-6.0) K/mm3 PT 11.9 H (9.1-10.7) Seconds INR (Anticoag Therapy) 1.21 H (0.92-1.08) INR PTT ([place]) 21.4 L (24-32) Seconds Potassium (3.4-4.6) mmol/L Anion Gap 17.5 H (6.8-13.8) mmol/L BUN/Creatinine Ratio 8.7 L (9.0-21.6) Random Glucose 121 H (70-110) mg/dL Total Bilirubin 1.4 H (0.0-1.1) mg/dL AST 205 H (0-48) U/L ALT 88 H (19-67) U/L Albumin 3.2 L (3.4-5.0) gm/dl Urine Protein (NEGATIVE) mg/dL Urine Nitrate (NEGATIVE) Urine Bilirubin (NEGATIVE) mg/dl Urine Ictotest (NEGATIVE) Urine Urobilinogen (NORMAL) EU/dl Ur Leukocyte Esterase (NEGATIVE) /ul Urine WBC (0-5) /hpf Ur Epithelial Cells (0-5) /hpf Urine Bacteria (NONE) Urine Mucus (NONE) 07/17/20 07/18/20 07/18/20 Range/Units 17:14 06:30 06:30 RBC 3.63 L (4.2-5.4) M/mm3 Hgb 11.8 L (12.5-16.0) gm/dL MCV 101.9 H (78-100) fl MCH 32.5 H (27-31) pg MCHC 31.9 L (32-36) g/dl Neutrophils # (1.3-6.0) K/mm3 PT (9.1-10.7) Seconds INR (Anticoag Therapy) (0.92-1.08) INR PTT ([place]) (24-32) Seconds Potassium 3.1 L (3.4-4.6) mmol/L Anion Gap 14.1 H (6.8-13.8) mmol/L BUN/Creatinine Ratio (9.0-21.6) Random Glucose (70-110) mg/dL Total Bilirubin 1.6 H (0.0-1.1) mg/dL AST 168 H (0-48) U/L ALT 73 H (19-67) U/L Albumin 2.7 L (3.4-5.0) gm/dl Urine Protein 30 H (NEGATIVE) mg/dL Urine Nitrate Positive H (NEGATIVE) Urine Bilirubin 6 H (NEGATIVE) mg/dl Urine Ictotest Positive H (NEGATIVE) Urine Urobilinogen 4 H (NORMAL) EU/dl Ur Leukocyte Esterase 25 H (NEGATIVE) /ul Urine WBC 5-10 H (0-5) /hpf Ur Epithelial Cells 10-25 H (0-5) /hpf Urine Bacteria 4+ H (NONE) Urine Mucus Many - 3+ H (NONE) Microbiology 07/17/20 17:14 Urine Culture - Preliminary Urine,Clean Catch Gram Negative Bacilli Ruling Out Second Organism Laboratory Results WBC 5.4 K/mm3 (4.0-10.5) D 07/18/20 06:30 RBC 3.63 M/mm3 (4.2-5.4) L 07/18/20 06:30 Hgb 11.8 gm/dL (12.5-16.0) L 07/18/20 06:30 Hct 37.0 % (37.0-47.0) 07/18/20 06:30 MCV 101.9 fl (78-100) H 07/18/20 06:30 MCH 32.5 pg (27-31) H 07/18/20 06:30 MCHC 31.9 g/dl (32-36) L 07/18/20 06:30 RDW 13.3 % (11.5-14.0) 07/18/20 06:30 Plt Count 156 K/mm3 (150-450) 07/18/20 06:30 MPV 8.7 fl (8-12.5) 07/18/20 06:30 Immature Gran % (Auto) 0.20 % (0.001-0.429) 07/18/20 06:30 Immature Gran # (Auto) 0.01 K/mm3 (0.000-0.0310) 07/18/20 06:30 Neutrophils % 54.9 % (42-75.0) 07/18/20 06:30 Lymphocytes % 35.7 % (20-51) 07/18/20 06:30 Monocytes % 6.8 % (0.0-9) 07/18/20 06:30 Eosinophils % 1.5 % (0.0-3.0) 07/18/20 06:30 Basophils % 0.9 % (0.0-1.0) 07/18/20 06:30 Nucleated RBC % 0.0 k/mm3 (0-1) 07/18/20 06:30 Neutrophils # 3.0 K/mm3 (1.3-6.0) 07/18/20 06:30 Lymphocytes # 1.93 k/mm3 (1.5-3.5) 07/18/20 06:30 Monocytes # 0.4 k/mm3 (0.0-1.0) 07/18/20 06:30 Eosinophils # 0.1 k/mm3 (0.0-0.7) 07/18/20 06:30 Absolute Basophils 0.1 k/mm3 (0.0-0.1) 07/18/20 06:30 PT 11.9 Seconds (9.1-10.7) H 07/17/20 15:49 INR (Anticoag Therapy) 1.21 INR (0.92-1.08) H 07/17/20 15:49 PTT ([place]) 21.4 Seconds (24-32) L 07/17/20 15:49 Sodium 139 mmol/L (132-142) 07/18/20 06:30 Plasma Sodium 139 mmol/L (130-142) 07/18/20 06:30 Potassium 3.1 mmol/L (3.4-4.6) L 07/18/20 06:30 Chloride 100 mmol/L (97-106) 07/18/20 06:30 Carbon Dioxide 28.0 mmol/L (24-32.6) 07/18/20 06:30 Anion Gap 14.1 mmol/L (6.8-13.8) H 07/18/20 06:30 BUN 6 mg/dL (3-23) 07/18/20 06:30 Creatinine 0.64 mg/dL (0.4-1.4) 07/18/20 06:30 Est GFR (Non-Af Amer) 114 mL/min (60-130) D 07/18/20 06:30 BUN/Creatinine Ratio 9.4 (9.0-21.6) 07/18/20 06:30 Random Glucose 88 mg/dL (70-110) 07/18/20 06:30 Calcium 8.4 mg/dL (7.9-10.9) 07/18/20 06:30 Calcium Adj for Albumin 9.1 mg/dL (8.4-10.2) 07/18/20 06:30 Magnesium 1.7 mg/dL (1.2-2.8) 07/17/20 15:48 Total Bilirubin 1.6 mg/dL (0.0-1.1) H 07/18/20 06:30 AST 168 U/L (0-48) H 07/18/20 06:30 ALT 73 U/L (19-67) H 07/18/20 06:30 Alkaline Phosphatase 118 U/L (50-170) 07/18/20 06:30 Ammonia Less than 17.0 mcmol/L (11-35) 07/17/20 17:19 Creatine Kinase 18 U/L (0-259) 07/17/20 18:49 Total Protein 6.9 gm/dL (6.2-8.2) 07/18/20 06:30 Albumin 2.7 gm/dl (3.4-5.0) L 07/18/20 06:30 Amylase 28 U/L (25-115) 07/17/20 15:49 Lipase 80 U/L (73-393) 07/17/20 15:49 Urine Color [place]erv[place] 07/17/20 17:14 Urine Appearance Slightly cloudy (CLEAR) 07/17/20 17:14 Urine pH 6.5 pH (5.0-7.0) 07/17/20 17:14 Ur Specific [place] 1.025 SP.GR. (1.005-1.010) 07/17/20 17:14 Urine Protein 30 mg/dL (NEGATIVE) H 07/17/20 17:14 Urine Glucose (UA) Negative mg/dL (NEGATIVE) 07/17/20 17:14 Urine Ketones 5 mg/dL (NEGATIVE) 07/17/20 17:14 Urine Blood Negative /ul (NEGATIVE) 07/17/20 17:14 Urine Nitrate Positive (NEGATIVE) H 07/17/20 17:14 Urine Bilirubin 6 mg/dl (NEGATIVE) H 07/17/20 17:14 Urine Ictotest Positive (NEGATIVE) H 07/17/20 17:14 Prot Sulfosalicylic Acd 1+ mg/dL (0) 07/17/20 17:14 Urine Urobilinogen 4 EU/dl (NORMAL) H 07/17/20 17:14 Ur Leukocyte Esterase 25 /ul (NEGATIVE) H 07/17/20 17:14 Urine RBC Trace /hpf (0-5) 07/17/20 17:14 Urine WBC 5-10 /hpf (0-5) H 07/17/20 17:14 Ur Epithelial Cells 10-25 /hpf (0-5) H 07/17/20 17:14 Urine Bacteria 4+ (NONE) H 07/17/20 17:14 Hyaline Casts Trace /LPF (NONE) 07/17/20 17:14 Urine Mucus Many - 3+ (NONE) H 07/17/20 17:14 Urine Culture Comments Culture to follow 07/17/20 17:14 Urine HCG, Qual Negative (NEGATIVE) 07/17/20 17:14 Monoscreen Negative (NEGATIVE) 07/17/20 15:48 SARS-CoV-2 (PCR) Not detected (ND) 07/17/20 20:20 Assessment/Plan - Narrative Narrative: 34-year-old female with a past medical history of asthma presents with complaints of generalized weakness, nausea and vomiting that has been progressively worsening for the past 1 month. She has had an unintentional weight loss of 65 pounds in the past 7 months. She is a elhh-se-kfzt mom and states that everybody at home is well. In the emergency department she was found to have stable vitals, mild elevation of her AST of 205, ALT 88, total bilirubin of 1.4, COVID and mono screen were both negative. CT abdomen pelvis showed hepatosplenomegaly. UA was positive for leukocyte esterase and nitrates but she is asymptomatic, she received a dose of ceftriaxone in the emergency department and it was not continued.. She was admitted for weakness. On exam she is found to have decreased sensation in bilateral upper and lower extremities, 4 out of 5 strength throughout all extremities, areflexia throughout all extremities, she is requiring assistance two-person assistance for ambulation. At baseline she ambulates independently. I have consulted with neurology at [facility] and differential includes Guillain- Fang syndrome, Poems syndrome and chronic inflammatory demyelinating polyneuropathy. He recommends transferring the patient to a higher level of care for lumbar puncture and possible IVIG or plasmapheresis. 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
--- NOTE | 2020-07-18 13:50 | DS ---
Transfer Discharge Summary - Diagnosis(s)/Problems (1) Generalized weakness Problem: Acute (2) Hepatosplenomegaly Problem: Acute (3) Asthma Problem: Chronic (4) Axonal GBS (Guillain-[place] syndrome) Problem: Suspected (5) Gait instability Problem: Acute - Course Description of Stay: 34-year-old female with a past medical history of asthma presents with complaints of generalized weakness, nausea and vomiting that has been progressively worsening for the past 1 month. She has had an unintentional weight loss of 65 pounds in the past 7 months. She is a rcsx-he-sriz mom and states that everybody at home is well. In the emergency department she was found to have stable vitals, mild elevation of her AST of 205, ALT 88, total bilirubin of 1.4, COVID and mono screen were both negative. CT abdomen pelvis showed hepatosplenomegaly. UA was positive for leukocyte esterase and nitrates but she is asymptomatic, she received a dose of ceftriaxone in the emergency department and it was not continued.. She was admitted for weakness. On exam she is found to have decreased sensation in bilateral upper and lower extremities, 4 out of 5 strength throughout all extremities, areflexia throughout all extremities, she is requiring assistance two-person assistance for ambulation. At baseline she ambulates independently. I have consulted with neurology at [facility] and differential includes Guyon Fang syndrome, Poems syndrome and chronic inflammatory demyelinating polyneuropathy. He recommends transferring the patient to a higher level of care for lumbar puncture and possible IVIG or plasmapheresis. I have consulted with the neurologist Dr. Diop at [place] [id number] in [facility] and he is willing to be consulted to care for the patient once the hospitalist accepts the patient. We are awaiting a bed. Procedures Performed: none - Results and Findings Results and Findings: Laboratory Results - last 24 hr 07/17/20 07/17/20 07/17/20 15:48 15:48 15:49 WBC 9.4 RBC 4.08 L Hgb 13.5 Hct 40.9 MCV 100.2 H MCH 33.1 H MCHC 33.0 RDW 13.3 Plt Count 214 MPV 8.5 Immature Gran % (Auto) 0.30 Immature Gran # (Auto) 0.03 Neutrophils % 71.7 Lymphocytes % 20.0 Monocytes % 6.8 Eosinophils % 0.7 Basophils % 0.5 Nucleated RBC % 0.0 Neutrophils # 6.7 H Lymphocytes # 1.88 Monocytes # 0.6 Eosinophils # 0.1 Absolute Basophils 0.1 PT INR (Anticoag Therapy) PTT ([place]) Sodium Plasma Sodium Potassium Chloride Carbon Dioxide Anion Gap BUN Creatinine Est GFR (Non-Af Amer) BUN/Creatinine Ratio Random Glucose Calcium Calcium Adj for Albumin Magnesium 1.7 Total Bilirubin AST ALT Alkaline Phosphatase Ammonia Creatine Kinase Total Protein Albumin Amylase Lipase Urine Color Urine Appearance Urine pH Ur Specific [place] Urine Protein Urine Glucose (UA) Urine Ketones Urine Blood Urine Nitrate Urine Bilirubin Urine Ictotest Prot Sulfosalicylic Acd Urine Urobilinogen Ur Leukocyte Esterase Urine RBC Urine WBC Ur Epithelial Cells Urine Bacteria Hyaline Casts Urine Mucus Urine Culture Comments Urine HCG, Qual Monoscreen Negative SARS-CoV-2 (PCR) 07/17/20 07/17/20 07/17/20 15:49 15:49 17:14 WBC RBC Hgb Hct MCV MCH MCHC RDW Plt Count MPV Immature Gran % (Auto) Immature Gran # (Auto) Neutrophils % Lymphocytes % Monocytes % Eosinophils % Basophils % Nucleated RBC % Neutrophils # Lymphocytes # Monocytes # Eosinophils # Absolute Basophils PT 11.9 H INR (Anticoag Therapy) 1.21 H PTT ([place]ais) 21.4 L Sodium 137 Plasma Sodium 137 Potassium 3.4 Chloride 97 Carbon Dioxide 25.9 Anion Gap 17.5 H BUN 8 Creatinine 0.92 Est GFR (Non-Af Amer) 75 BUN/Creatinine Ratio 8.7 L Random Glucose 121 H Calcium 9.3 Calcium Adj for Albumin 9.6 Magnesium Total Bilirubin 1.4 H AST 205 H ALT 88 H Alkaline Phosphatase 135 Ammonia Creatine Kinase Total Protein 8.1 Albumin 3.2 L Amylase 28 Lipase 80 Urine Color Urine Appearance Urine pH Ur Specific [place] Urine Protein Urine Glucose (UA) Urine Ketones Urine Blood Urine Nitrate Urine Bilirubin Urine Ictotest Prot Sulfosalicylic Acd Urine Urobilinogen Ur Leukocyte Esterase Urine RBC Urine WBC Ur Epithelial Cells Urine Bacteria Hyaline Casts Urine Mucus Urine Culture Comments Urine HCG, Qual Negative Monoscreen SARS-CoV-2 (PCR) 07/17/20 07/17/20 07/17/20 17:14 17:19 18:49 WBC RBC Hgb Hct MCV MCH MCHC RDW Plt Count MPV Immature Gran % (Auto) Immature Gran # (Auto) Neutrophils % Lymphocytes % Monocytes % Eosinophils % Basophils % Nucleated RBC % Neutrophils # Lymphocytes # Monocytes # Eosinophils # Absolute Basophils PT INR (Anticoag Therapy) PTT ([place]) Sodium Plasma Sodium Potassium Chloride Carbon Dioxide Anion Gap BUN Creatinine Est GFR (Non-Af Amer) BUN/Creatinine Ratio Random Glucose Calcium Calcium Adj for Albumin Magnesium Total Bilirubin AST ALT Alkaline Phosphatase Ammonia Less than 17.0 Creatine Kinase 18 Total Protein Albumin Amylase Lipase Urine Color Minerva Urine Appearance Slightly cloudy Urine pH 6.5 Ur Specific [place] 1.025 Urine Protein 30 H Urine Glucose (UA) Negative Urine Ketones 5 Urine Blood Negative Urine Nitrate Positive H Urine Bilirubin 6 H Urine Ictotest Positive H Prot Sulfosalicylic Acd 1+ Urine Urobilinogen 4 H Ur Leukocyte Esterase 25 H Urine RBC Trace Urine WBC 5-10 H Ur Epithelial Cells 10-25 H Urine Bacteria 4+ H Hyaline Casts Trace Urine Mucus Many - 3+ H Urine Culture Comments Culture to follow Urine HCG, Qual Monoscreen SARS-CoV-2 (PCR) 07/17/20 07/18/20 07/18/20 20:20 06:30 06:30 WBC 5.4 D RBC 3.63 L Hgb 11.8 L Hct 37.0 MCV 101.9 H MCH 32.5 H MCHC 31.9 L RDW 13.3 Plt Count 156 MPV 8.7 Immature Gran % (Auto) 0.20 Immature Gran # (Auto) 0.01 Neutrophils % 54.9 Lymphocytes % 35.7 Monocytes % 6.8 Eosinophils % 1.5 Basophils % 0.9 Nucleated RBC % 0.0 Neutrophils # 3.0 Lymphocytes # 1.93 Monocytes # 0.4 Eosinophils # 0.1 Absolute Basophils 0.1 PT INR (Anticoag Therapy) PTT ([place]) Sodium 139 Plasma Sodium 139 Potassium 3.1 L Chloride 100 Carbon Dioxide 28.0 Anion Gap 14.1 H BUN 6 Creatinine 0.64 Est GFR (Non-Af Amer) 114 D BUN/Creatinine Ratio 9.4 Random Glucose 88 Calcium 8.4 Calcium Adj for Albumin 9.1 Magnesium Total Bilirubin 1.6 H AST 168 H ALT 73 H Alkaline Phosphatase 118 Ammonia Creatine Kinase Total Protein 6.9 Albumin 2.7 L Amylase Lipase Urine Color Urine Appearance Urine pH Ur Specific [place] Urine Protein Urine Glucose (UA) Urine Ketones Urine Blood Urine Nitrate Urine Bilirubin Urine Ictotest Prot Sulfosalicylic Acd Urine Urobilinogen Ur Leukocyte Esterase Urine RBC Urine WBC Ur Epithelial Cells Urine Bacteria Hyaline Casts Urine Mucus Urine Culture Comments Urine HCG, Qual Monoscreen SARS-CoV-2 (PCR) Not detected - Medications Medications: Active Medications Sodium Chloride (Sodium Chloride 0.9%) 1,000 mls @ 999 mls/hr IV .Q1H1M PRN PRN Reason: HYDRATION Stop: 08/16/20 16:17 Last Infusion: 07/17/20 17:30 Dose: Infused Documented by: Sodium Chloride (Sodium Chloride 0.9%) 1,000 mls @ 125 mls/hr IV .Q8H PRN PRN Reason: HYDRATION Stop: 08/16/20 21:01 Last Admin: 07/18/20 05:45 Dose: 125 mls/hr Documented by: Potassium Chloride/Water (Kcl 10 Meq/100 Ml Piggyback) 100 mls @ 100 mls/hr IV Q1H HANNAH Stop: 07/18/20 14:44 Last Admin: 07/18/20 11:55 Dose: 100 mls/hr Documented by: Morphine Sulfate (Morphine Sulfate) 2 mg IV Q1H PRN PRN Reason: Pain Stop: 08/16/20 21:02 Last Admin: 07/18/20 10:12 Dose: 2 mg Documented by: Ondansetron HCl (Zofran) 4 mg IV Q6H PRN PRN Reason: Nausea And Vomiting Stop: 08/16/20 21:02 Last Admin: 07/18/20 07:23 Dose: 4 mg Documented by: Oxycodone/Acetaminophen (Percocet 5 Mg/325 Mg) 1 tab PO Q4H PRN PRN Reason: Moderate Pain (pain scale 4-6) Stop: 08/17/20 09:56 Last Admin: 07/18/20 11:31 Dose: 1 tab Documented by: Discontinued Medications Diatrizoate Meglum/Diatrizoate Sod (Gastrografin Solution) 60 ml PO ONCE ONE Stop: 07/17/20 16:32 Last Admin: 07/17/20 16:42 Dose: 60 ml Documented by: Ceftriaxone Sodium (Rocephin 1000 Mg Er Piggyback) 1,000 mg in 100 mls @ 200 mls/hr IV ONCE ONE Stop: 07/17/20 18:34 Last Infusion: 07/17/20 19:07 Dose: Infused Documented by: Lorazepam (Ativan) 1 mg IV ONCE ONE Stop: 07/17/20 18:22 Last Admin: 07/17/20 18:25 Dose: 1 mg Documented by: Morphine Sulfate (Morphine Sulfate) 2 mg IV ONCE ONE Stop: 07/17/20 17:26 Last Admin: 07/17/20 17:30 Dose: 2 mg Documented by: Morphine Sulfate (Morphine Sulfate) 2 mg IV ONCE ONE Stop: 07/17/20 18:07 Last Admin: 07/17/20 18:13 Dose: 2 mg Documented by: Ondansetron HCl (Zofran) 4 mg IV ONCE ONE Stop: 07/17/20 15:35 Last Admin: 07/17/20 16:10 Dose: 4 mg Documented by: Potassium Chloride (K-Dur) 40 meq PO ONCE ONE Stop: 07/18/20 09:23 Last Admin: 07/18/20 10:34 Dose: Not Given Documented by: - Disposition Disposition: Intermediate Care Facility [facility] Condition: Serious
[2020-07-18] MEDS ORDERED: ALPRAZolam 0.5 MG TABLET PO ONE (17:56)
[2020-07-19 01:22] VITALS: BP 142/100
[2020-07-21 04:42] LABS: 18KD (IGG) Band REACTIVE; 23KD (IGG) Band NON-REACTIVE; 28KD (IgG) Band NON-REACTIVE; 30KD (IgG) Band NON-REACTIVE; 39KD (IgG) Band NON-REACTIVE; 39KD (IgM) Band NON-REACTIVE; 41KD (IgG) Band NON-REACTIVE; 45KD (IgG) Band NON-REACTIVE; 58KD (IgG) Band NON-REACTIVE; 66KD (IgG) Band NON-REACTIVE; 93KD (IgG) Band NON-REACTIVE; B burgdorferi IgM WB NEGATIVE (NEGATIVE); B.burgdorferi Ab (IgG) WB NEGATIVE (NEGATIVE)
[2020-07-21 07:12] LABS: 41KD (IgM) Band NON-REACTIVE
== END 2020-07-18 20:55 | disposition short-term general hospital (02) ==
LOC: MS 14:32 → ER 14:32 → MS 21:38
PROVIDERS: ADMIT Internal Medicine; ATTEND Internal Medicine
DX: F17.210 Nicotine dependence, cigarettes, uncomplicated; B96.20 Unspecified Escherichia coli [E. coli] as the cause of diseases classified elsewhere; R26.2 Difficulty in walking, not elsewhere classified; G61.0 Guillain-Barre syndrome; R11.2 Nausea with vomiting, unspecified; G61.81 Chronic inflammatory demyelinating polyneuritis; N39.0 Urinary tract infection, site not specified; R16.2 Hepatomegaly with splenomegaly, not elsewhere classified; J45.909 Unspecified asthma, uncomplicated; R53.1 Weakness
CPT/HCPCS: 36415; 74019; 74020; 74177; 80053; 81001; 82140; 82150; 82550; 83690; 83735; 84703; 85025; 85610; 85730; 86308; 86617; 87040; 87077; 87086; 87186; 96361; 96365; 96366; 96367; 96375; 96376; 99285; C9803; G0378; J2405; Q9963; Q9967